=== PATIENT | female | born 1990 | race Caucasian/White ===

== ENCOUNTER 2018-12-25 07:50 | Emergency (ER) | payer MEDICAID ==
[~2018-12-25] VITALS: Ht 162.6 cm; Wt 68.0 kg
[2018-12-25] MEDS ORDERED: ALBU6.7H9 IH (07:59)
[2018-12-25] MEDS ORDERED: ONDANSETRON 4MG ODT PO ONE (09:45)
[2018-12-25] MEDS ORDERED: ACETAMINOPHEN 500MG TABLET PO ONE (09:45)
[2018-12-25] MEDS ORDERED: KETOROLAC 30MG/ML VIAL IM NR (10:30)
[2018-12-25 11:03] VITALS: BP 118/65
== END 2018-12-25 11:04 | disposition home or self-care (01) ==
LOC: ER 07:50
DX: S09.8XXA Other specified injuries of head, initial encounter (principal); J45.909 Unspecified asthma, uncomplicated; Z79.899 Other long term (current) drug therapy; V89.2XXA Person injured in unspecified motor-vehicle accident, traffic, initial encounter; Y93.89 Activity, other specified; Y92.520 Airport as the place of occurrence of the external cause; Y99.8 Other external cause status
CPT/HCPCS: 70450; 70486; 81025; 96372; 99284; J1885; Q0162